=== PATIENT | female | born 1970 | race Two or more races ===

== ENCOUNTER → 2019-04-21 08:33 | Outpatient (CLI) | payer OTHER | END | disposition home or self-care (01) | LOC: LAB 08:33 | DX: M85.88 Other specified disorders of bone density and structure, other site (principal); E21.2 Other hyperparathyroidism; E88.89 Other specified metabolic disorders; E55.9 Vitamin D deficiency, unspecified; M81.8 Other osteoporosis without current pathological fracture; E56.1 Deficiency of vitamin K; N20.1 Calculus of ureter ==

== ENCOUNTER 2019-04-23 07:59 | Outpatient (CLI) | payer OTHER | END 2019-04-23 15:00 | disposition home or self-care (01) | LOC: LAB 07:59 | DX: N20.1 Calculus of ureter (principal) ==

== ENCOUNTER 2019-05-01 08:20 | Outpatient (CLI) | payer OTHER | END 2019-05-01 08:52 | disposition home or self-care (01) | LOC: LAB 08:20 | DX: N20.1 Calculus of ureter (principal) ==

== ENCOUNTER 2023-05-08 10:22 | Emergency (ER) | payer OTHER ==
[~2023-05-08] VITALS: Ht 167.6 cm; Wt 179.2 kg
[2023-05-08] MEDS ORDERED: MONTELUKAST SODI4 M1 (10:35)
[2023-05-08] MEDS ORDERED: KETOROLAC TROMETHAMINE 60 MG VIAL IM STA (11:29)
[2023-05-08] MEDS ORDERED: ORPHENADRINE CITRATE 30 MG/ML AMPUL IM STA (14:36)
[2023-05-09] MEDS ORDERED: ACID REDUCER20 M1 PO (14:03)
[2023-05-09] MEDS ORDERED: PLAQUENIL PO (14:03)
== END 2023-05-08 14:46 | disposition home or self-care (01) ==
LOC: ER 10:23
DX: S52.021A Displaced fracture of olecranon process without intraarticular extension of right ulna, initial encounter for closed fracture (principal); S20.211A Contusion of right front wall of thorax, initial encounter; W18.39XA Other fall on same level, initial encounter; Y93.89 Activity, other specified; S13.4XXA Sprain of ligaments of cervical spine, initial encounter; S50.11XA Contusion of right forearm, initial encounter; S40.011A Contusion of right shoulder, initial encounter; J45.909 Unspecified asthma, uncomplicated; M32.8 Other forms of systemic lupus erythematosus

== ENCOUNTER 2023-05-10 06:40 | Day surgery (SDC) | payer OTHER ==
[2023-05-09 13:53] LABS: HEMATOCRIT 39.6 % (36.0-45.00); HEMOGLOBIN 13.4 g/dL (12.0-15.00); MEAN CELL VOLUME 83.1 fL (80.00-100.00); MEAN CORPUSCULAR HGB CONC 33.7 g/dl (32.0-36.0); PLATELET COUNT 237 K/uL (150-450); RED BLOOD COUNT 4.77 M/uL (4.00-6.00); RED CELL DISTRIBUTION WIDTH 14.6 % (11.5-14.5)
[2023-05-09 14:22] LABS: ALBUMIN 3.5 gm/dL (3.4-5.0); BILIRUBIN TOTAL 0.42 mg/dL (0.3-1.2); CALCIUM 9.8 mg/dL (8.5-10.1); CREATININE SERUM 0.6 mg/dL (0.55-1.02); GFR 105.82; GLOBULINA 4.4 G/DL (2.4-3.5); POTASSIUM 4.35 mEq/L (3.5-5.1); TOTAL PROTEIN 7.9 gm/dL (6.4-8.2)
[2023-05-09 14:29] LABS: PARTIAL THROMBOPLASTIN TIME 26.2 SECONDS (22.0-34.0); PROTHROMBIN TIME 10.5 SECONDS (9.0-11.5)
[2023-05-09 14:31] LABS: PH,URINE 5.5 (5.0-8.0); URINE APPEARANCE Cloudy; URINE BILIRRUBIN Negative (NEGATIVE); URINE BLOOD Small; URINE COLOR Yellow; URINE GLUCOSE Negative (NEGATIVE); URINE LEUKOCYTE Large; URINE NITRATE Negative; URINE PROTEIN 30 (NEGATIVE); URINE UROBILINOGEN 0.2 E.U./dl
[2023-05-09 14:32] LABS: URINE BACTERIA 4872.1 uL (0.0-1933); URINE EPITHELIAL CELLS 21.1 uL (0.0-38.8); URINE RBC 34.3 uL (0.0-20.8); URINE WBC 3035.6 uL (0.0-23.2)
[~2023-05-10] VITALS: Ht 167.6 cm; Wt 179.2 kg
[~2023-05-10 06:40] MED LIST: ACID REDUCER20 M1 PO; MONTELUKAST SODI4 M1; PLAQUENIL PO
[2023-05-10] MEDS ORDERED: hydrALAZINE HCL 20 MG VIAL ONE (15:16)
== END 2023-05-10 17:30 | disposition home or self-care (01) ==
LOC: CIR.AMB 06:40
PROVIDERS: ATTEND Orthopaedic Surgery
DX: S52.031A Displaced fracture of olecranon process with intraarticular extension of right ulna, initial encounter for closed fracture (principal); Z20.822 Contact with and (suspected) exposure to COVID-19; I10 Essential (primary) hypertension
CPT/HCPCS: 24685; 20902; L8699

== ENCOUNTER 2023-06-02 14:15 | Outpatient (CLI) | payer OTHER | END 2023-06-02 14:16 | disposition home or self-care (01) | LOC: RAD 14:15 | PROVIDERS: ATTEND Orthopaedic Surgery | DX: S52.031D Displaced fracture of olecranon process with intraarticular extension of right ulna, subsequent encounter for closed fracture with routine healing (principal) ==

== ENCOUNTER 2023-06-13 05:55 | Day surgery (SDC) | payer OTHER ==
[2023-06-03 10:39] LABS: HEMATOCRIT 38.1 % (36.0-45.00); HEMOGLOBIN 12.7 g/dL (12.0-15.00); MEAN CELL VOLUME 83.1 fL (80.00-100.00); MEAN CORPUSCULAR HEMOGLOBIN 27.7 pg (27.00-32.0); MEAN CORPUSCULAR HGB CONC 33.3 g/dl (32.0-36.0); PLATELET COUNT 251 K/uL (150-450); RED BLOOD COUNT 4.59 M/uL (4.00-6.00); RED CELL DISTRIBUTION WIDTH 15.2 % (11.5-14.5)
[2023-06-03 10:48] LABS: PH,URINE 5.5 (5.0-8.0); URINE APPEARANCE Cloudy; URINE BILIRRUBIN Negative (NEGATIVE); URINE BLOOD Trace; URINE COLOR Yellow; URINE GLUCOSE Negative (NEGATIVE); URINE LEUKOCYTE Large; URINE NITRATE Positive; URINE PROTEIN Trace (NEGATIVE); URINE UROBILINOGEN 0.2 E.U./dl
[2023-06-03 10:49] LABS: URINE EPITHELIAL CELLS 8.9 uL (0.0-38.8); URINE RBC 19.1 uL (0.0-20.8)
[2023-06-03 10:50] LABS: URINE BACTERIA > 9821.5 uL (0.0-1933)
[2023-06-03 10:55] LABS: INR 1.04; PARTIAL THROMBOPLASTIN TIME 26.5 SECONDS (22.0-34.0); PROTHROMBIN TIME 10.9 SECONDS (9.0-11.5)
[2023-06-03 11:08] LABS: ALBUMIN 3.4 gm/dL (3.4-5.0); BILIRUBIN TOTAL 0.53 mg/dL (0.3-1.2); CALCIUM 9.8 mg/dL (8.5-10.1); CREATININE SERUM 0.6 mg/dL (0.55-1.02); GFR 105.82; GLOBULINA 4.3 G/DL (2.4-3.5); POTASSIUM 4.67 mEq/L (3.5-5.1); TOTAL PROTEIN 7.7 gm/dL (6.4-8.2)
[2023-06-03 11:16] LABS: COL EPI 139 SECONDS (82-175)
[2023-06-13] MEDS ORDERED: CEFAZOLIN SODIUM 1,000 MG VIAL ONE (06:47)
[2023-06-13] MEDS ORDERED: BUPIVACAINE HCL/PF 0.5% 30ML ML ONE (07:27)
[2023-06-13] MEDS ORDERED: BUPIVACAINE HCL 30 ML VIAL IJ ONE (09:45)
[2023-06-13] MEDS ORDERED: ISOPROPYL ALCOHOL 30 ML OUNCE TOP ONE (09:45)
[2023-06-13] MEDS ORDERED: CEFAZOLIN SODIUM 1,000 MG VIAL IV SCH (09:45)
[2023-06-13] MEDS ORDERED: ENALAPRILAT DIHYDRATE 1.25 MG/ML VIAL IV ONE ×4 (10:43→14:30)
[2023-06-13] MEDS ORDERED: SUGAMMADEX SODIUM 200 MG/2 ML VIAL IV ONE ×2 (10:47→11:15)
== END 2023-06-13 15:35 | disposition home or self-care (01) ==
LOC: CIR.AMB 05:55
PROVIDERS: ATTEND Orthopaedic Surgery
DX: S52.031D Displaced fracture of olecranon process with intraarticular extension of right ulna, subsequent encounter for closed fracture with routine healing (principal); I10 Essential (primary) hypertension
CPT/HCPCS: 24685; L8699

== ENCOUNTER 2023-09-22 13:14 | Outpatient (CLI) | payer OTHER | END 2023-09-22 13:27 | disposition home or self-care (01) | LOC: RAD 13:14 | PROVIDERS: ATTEND Orthopaedic Surgery | DX: S52.031D Displaced fracture of olecranon process with intraarticular extension of right ulna, subsequent encounter for closed fracture with routine healing (principal) ==

== ENCOUNTER 2023-11-18 07:39 | Outpatient (CLI) | payer OTHER | END 2023-11-18 07:50 | disposition home or self-care (01) | LOC: RAD 07:39 | PROVIDERS: ATTEND Orthopaedic Surgery | DX: M25.511 Pain in right shoulder (principal); M25.572 Pain in left ankle and joints of left foot ==

== ENCOUNTER 2024-02-29 09:32 | Outpatient (CLI) | payer OTHER | END 2024-02-29 09:44 | disposition home or self-care (01) | LOC: RAD 09:32 | PROVIDERS: ATTEND Orthopaedic Surgery | DX: M77.01 Medial epicondylitis, right elbow (principal) ==

== ENCOUNTER 2024-12-08 08:26 | Outpatient (CLI) | payer OTHER | END 2024-12-08 08:32 | disposition home or self-care (01) | LOC: RAD 08:26 | PROVIDERS: ATTEND Orthopaedic Surgery | DX: M79.671 Pain in right foot (principal) ==